=== PATIENT | male | born 1970 | race Caucasian/White ===

== ENCOUNTER 2021-01-14 17:09 | Emergency (ER) | payer SELFPAY ==
[2021-01-14 18:04] VITALS: BP 128/89; PULSE 94; RESP 18; TEMP 37.4; O2SAT 94; BMI 37.2
--- NOTE | 2021-01-14 22:11 | W.ED.EXTPRO ---
HPI - Extremity Problem General: Chief complaint: Extremity Injury, Upper Stated complaint: Fall, Pain in L arm Time Seen by Provider: 01/14/21 22:11 History of Present Illness: HPI Narrative: Patient is a 51-year-old male comes to the ED with left arm pain. Patient says last night he slipped in the shower and was able to catch himself by bracing his left arm against the wall. Patient says when he did that his left elbow hyperextended and he felt a pop around his elbow along with pain. Since injury last night he has been having pain when flexing and extending his left arm at the elbow. He also has some ecchymosis and swelling on the superior aspect of left elbow. Patient says he took some Tylenol last night and it did not help with pain. He rates his pain currently a 7 out of 10. Associated symptoms: Deny chest pain, fever(s) or rash Review of Systems Const: Denies: fever(s), chills or fatigue Eyes: Denies: change in vision or eye discomfort ENMT: Denies: throat pain, odynophagia, nasal discharge or nasal congestion Card: Denies: chest pain, palpitations, edema, swelling of feet/ankles, dyspnea on exertion or orthopnea Resp: Denies: dyspnea, productive cough or non-productive cough GI: Denies: abdominal pain, nausea, vomiting, diarrhea, constipation or hematochezia : Denies: flank pain, difficulty urinating, dysuria or hematuria Musc: Reports: extremity pain (left elbow) and extremity swelling (left elbow); Denies: neck pain or back pain Skin/Breast: Denies: rash or new lesions Neuro: Denies: headache(s), numbness in extremities or weakness in extremities Physical Exam Const: COMMON NORMALS: no acute distress, patient oriented x3 and alert GENERAL APPEARANCE: cooperative and comfortable HENMT: COMMON NORMALS: normocephalic HEAD & SCALP: normocephalic MOUTH: Normal oral and palatal mucosa present THROAT: posterior oropharynx normal and uvula midline Neck/C-Spine: COMMON NORMALS: supple GENERAL: Yes normal visual inspection Resp: COMMON NORMALS: normal respiratory effort, No retractions, No use of accessory muscles and clear to auscultation bilaterally AUSCULTATION: clear to auscultation bilaterally Cardio: COMMON NORMALS: regular rate, regular rhythm, S1 normal heart sound present, S2 normal heart sound present, No gallops present (Cardio), No clicks present (Cardio), No murmurs present (Cardio) and Peripheral pulses 2+ throughout RATE: regular rate RHYTHM: regular rhythm HEART SOUNDS: S1 normal heart sound present and S2 normal heart sound present PERIPHERAL PULSES: Peripheral pulses 2+ throughout GI: COMMON NORMALS: Normal to inspection, nondistended, normoactive bowel sounds present, Soft to palpation, non-tender and no masses PALPATION: Yes Soft to palpation : COMMON NORMALS: Yes no CVA tenderness BLADDER/KIDNEY EXAM: Yes no CVA tenderness Back/Pelvis: COMMON NORMALS: no CVA tenderness Extremity: NARRATIVE EXTREMITY EXAM: Left elbow-visible swelling and ecchymosis seen on the superior aspect of posterior elbow. Patient is also tender on the posterior and superior aspect of elbow. Limited flexion and extension of elbow due to pain. Neurovascular tact distally with 2+ radial pulse. GENERAL: Yes normal exam except as noted Neuro: COMMON NORMALS: patient oriented x3 and moves all extremities SENSORIUM/ORIENTATION: Yes alert Skin: GENERAL SKIN EXAM: dry skin Course Vital Signs: Vital signs: Vital Signs Temperature 97.8 F 01/14/21 23:51 Pulse Rate 88 01/14/21 23:51 Respiratory Rate 18 01/14/21 23:51 Blood Pressure 145/92 01/14/21 23:51 Pulse Oximetry 98 01/14/21 23:51 MDM - Extremity (Nontraumatic) MDM Narrative: Medical decision making narrative: Patient is a 51-year-old male comes to the ED with left elbow injury. Patient describes a hyper extension injury to left elbow. He felt a pop and has pain and swelling on the superior posterior aspect of left elbow. He has significant swelling and ecchymosis to the superior and posterior aspect of left elbow. He has pain when extending or flexing left elbow. Neurovascular intact. Left elbow x-ray showed periarticular soft tissue injury of the posterior elbow but no definitive fracture seen. Due to patient's clinical presentation I am going to refer patient to orthopedic doctor for further evaluation of left elbow injury. Patient was discharged home with a left shoulder sling and a written prescription of hydrocodone 5/325 mg #8 tablets. Return ED precautions given. I told patient that disease case manager will be contacting him in the next several days set up an appoint with orthopedic doctor. Patient understood agree with plan. Imaging Data^: Xray Ortho: Attestation: I personally reviewed and interpreted this imaging study as follows: Radiologist's impression: [address] [address] XRay Report Signed Patient: Jose Guardado Unit #: [id number] : [id number] Age/Sex: 51 / M ADM Date: 01/14/21 Loc: ER Room/Bed: Attending Dr: Ordering Provider/Ordering MD: Ramos Giron Date of Service: 01/14/21 Procedure(s): XR elbow LT min 3V* [id number] Accession Number(s): [id number] Report Number: [id number] PROCEDURE INFORMATION: Exam: XR Left Elbow Exam date and time: 01/14/2021 10:19 PM Age: 51 years old Clinical indication: Injury or trauma; Fall; Blunt trauma (contusions or hematomas); Injury date: 01/14/2021; Injury details: Fell in shower, caught himself and hyperextended left elbow, posterior bruise/swelling; Patient HX: Left elbow pain; Additional info: Hyperextend injury-ecchymosis and swelling TECHNIQUE: Imaging protocol: XR Left elbow. Views: 3 or more views. COMPARISON: No relevant prior studies available. FINDINGS: Bones/joints: Unremarkable joint alignment. Negative for joint effusion. Small calcifications adjacent to the proximal ulna are nonspecific. No definitive fractures. Soft tissues: Soft tissue swelling. XR/XR elbow LT min 3V* [id number] IMPRESSION: 1. Periarticular soft tissue injury of the posterior elbow. 2. No definite fractures. Dictated By: Sherman Jasmine Signed By: Sherman Jasmine Signed Date/Time: 01/14/212318 DD/ 17 Discharge Plan Discharge Patient Disposition: Home Clinical Impression: Soft tissue injury of left elbow Qualifiers: Encounter type: initial encounter Qualified Code(s): S59.902A - Unspecified injury of left elbow, initial encounter Condition: Stable Discharge Orders: Discharge ED (Routine); Ordered 01/14/21 Ordered By: Ramos Giron Referrals: Karl,Arvind, ASSOCIATE TEAM PHYSICIAN [Primary Care Provider] - Discharge Diet: Regular Discharge Activity: Limit activity as instructed Patient Instructions: Elbow Sprain (ED) Activity Restrictions/Additional Instructions: Follow-up with medical provider as directed. senior clinical study manager will contact you in the next several days to set up an appointment with the orthopedic doctor. Wear shoulder sling as needed to help provide support and allow your left elbow to rest for the next couple days. Make sure to take left arm out of sling daily and do some range of motion exercises with your shoulder to prevent frozen shoulder syndrome. Take medications as prescribed. Apply cold pack on elbow as well to help with symptoms. Return to the ER or your medical provider if condition worsens. Please read and understand discharge instructions. Thank you for choosing [facility] for your healthcare needs today. Please realize this is an emergency room and that we are providing you with a medical screening exam and this may not be complete and all inclusive of all the testing and or work up that you may need to determine your ailment or severity of your illness. It is very important that you follow up as instructed or that you return to the Emergency Department should you have concerns or if your condition changes or worsens in any way. Coding Level of Care Code ED Hospice Nurse for Stephany Fwkwasi Exam Comprehensive
[2021-01-14 22:13] VITALS: PULSE 74
--- NOTE | 2021-01-14 22:19 | XRR_ITS ---
PROCEDURE INFORMATION: Exam: XR Left Elbow Exam date and time: 01/14/2021 10:19 PM Age: 51 years old Clinical indication: Injury or trauma; Fall; Blunt trauma (contusions or hematomas); Injury date: 01/14/2021; Injury details: Fell in shower, caught himself and hyperextended left elbow, posterior bruise/swelling; Patient HX: Left elbow pain; Additional info: Hyperextend injury-ecchymosis and swelling TECHNIQUE: Imaging protocol: XR Left elbow. Views: 3 or more views. COMPARISON: No relevant prior studies available. FINDINGS: Bones/joints: Unremarkable joint alignment. Negative for joint effusion. Small calcifications adjacent to the proximal ulna are nonspecific. No definitive fractures. Soft tissues: Soft tissue swelling. XR/XR elbow LT min 3V* [id number] IMPRESSION: 1. Periarticular soft tissue injury of the posterior elbow. 2. No definite fractures.
[2021-01-14] MEDS: ketorolac 60 mg/2 mL INJ IM (22:26)
[2021-01-14 23:51] VITALS: BP 145/92; PULSE 88; RESP 18; TEMP 36.6; O2SAT 98
--- NOTE | 2021-01-15 09:01 | DCPLANNER ---
instrumentation manager had message to schedule a follow up appointment for patient with ortho for a soft elbow soft tissue injury. instrumentation manager called the ortho clinic, spoke with Annamaria, gave clinic patients information. instrumentation manager was told that patients information would be printed and reviewed. Clinic will call patient with appointment information.
--- NOTE | 2021-01-21 13:33 | DCPLANNER ---
Patient had a follow up appointment scheduled for 01.17.[address] Quinonez -patient did attend appointment.
== END 2021-01-14 23:52 | disposition home or self-care (01) ==
PROVIDERS: Emergency Provider Physician Assistant; PCP Nurse Practitioner Family
DX: S59.902A Unspecified injury of left elbow, initial encounter (principal); W18.49XA Other slipping, tripping and stumbling without falling, initial encounter; Y93.E1 Activity, personal bathing and showering; Y92.002 Bathroom of unspecified non-institutional (private) residence as the place of occurrence of the external cause
CPT/HCPCS: 73080; 96372; 99283; J1885

== ENCOUNTER 2022-09-18 17:40 | Outpatient (CLI) | payer SELFPAY ==
--- NOTE | 2022-09-18 18:30 | XRR_ITS ---
PROCEDURE INFORMATION: Exam: XR Chest Exam date and time: 09/18/2022 6:31 PM Age: 52 years old Clinical indication: Shortness of breath TECHNIQUE: Imaging protocol: Radiologic exam of the chest. Views: 2 views. COMPARISON: CR XR chest 1V [id number] 02/16/2019 8:22 PM FINDINGS: Lungs: Unremarkable. No consolidation. Pleural spaces: Unremarkable. No pleural effusion. No pneumothorax. Heart/Mediastinum: Unremarkable. No cardiomegaly. Bones/joints: Rotator cuff anchor noted within the right humeral head. Visualized osseous structures are intact. XR/XR chest 2V* [id number] IMPRESSION: No acute findings.
== END 2022-09-18 17:41 | disposition home or self-care (01) ==
PROVIDERS: PCP Nurse Practitioner Family; Visit Provider Nurse Practitioner Family
DX: R06.02 Shortness of breath (principal)
CPT/HCPCS: 71046

== ENCOUNTER 2022-09-19 19:07 | Emergency (ER) | payer SELFPAY ==
[2022-09-19 19:14] VITALS: BP 132/83; PULSE 109; RESP 20; TEMP 36.9; O2SAT 97; BMI 44.3
--- NOTE | 2022-09-19 19:49 | W.ED.EXTPRO ---
HPI - Extremity Problem General: Chief complaint: Extremity Injury, Lower Stated complaint: bilateral leg weakness Time Seen by Provider: 09/19/22 19:42 History of Present Illness: 52 old male patient comes in today for complaints of pelvic pain radiating to the right hip. Patient reports pain is started over the last week and has become unbearable at times with difficulty finding a resting position. Patient reports a loss of weight over the last 5 weeks of 17 pounds. Patient did state that he did change his diet and was intentionally trying to lose weight. Patient has a history of swelling in the lower extremities which he takes Lasix for. Patient has had a history of diabetes which he manages with diet. Patient sees Shania Figueroa for his primary care. Associated symptoms: Deny chest pain or rash Review of Systems General: Reports: 10 or more systems reviewed and unremarkable except in HPI and below Card: Denies: chest pain Resp: Denies: dyspnea GI: Denies: nausea or vomiting Musc: Reports: back pain Skin/Breast: Denies: rash PFSH ED PFSH: Social History Smoking and tobacco status: never smoked Physical Exam Const: COMMON NORMALS: alert HENMT: COMMON NORMALS: normocephalic HEAD & SCALP: normocephalic Neck/C-Spine: COMMON NORMALS: full ROM Lymph: LYMPHATIC: no lymphadenopathy noted Resp: COMMON NORMALS: normal respiratory effort and clear to auscultation bilaterally AUSCULTATION: clear to auscultation bilaterally Cardio: COMMON NORMALS: regular rate and regular rhythm RATE: regular rate RHYTHM: regular rhythm Back/Pelvis: THORACIC SPINE/UPPER BACK: No thoracic spinal tenderness LUMBAR SPINE/LOWER BACK: Yes lumbar spinal tenderness Lumbar spinal tenderness location: L5 and No paraspinal muscle tenderness Extremity: COMMON NORMALS: normal to inspection RIGHT LOWER EXTREMITY: Yes hip joint (Posterior sacroiliac tenderness) Neuro: SENSORIUM/ORIENTATION: Yes alert Skin: COMMON NORMALS: turgor normal GENERAL SKIN EXAM: turgor normal Course Vital Signs: Vital signs: Vital Signs Temperature 98.4 F 09/19/22 19:14 Pulse Rate 109 H 09/19/22 19:14 Respiratory Rate 20 H 09/19/22 19:14 Blood Pressure 132/83 09/19/22 19:14 Pulse Oximetry 97 09/19/22 19:14 Oxygen Delivery Me thod 09/19/22 19:14 MDM - Extremity (Nontraumatic) Medical Decision Making 52-year-old male patient comes in today for complaints of pelvic pain radiating to the right hip. Patient reports that he is unable to find comfort. Patient states the pain is being deep. On exam patient does have tenderness to the L5-S1 area of the spine and sacroiliac joint on the right side. Patient moves all extremities well. Abdomen soft nontender. Skin is warm and dry. Vital signs are normal except for some elevation in pulse and respirations. Patient reports he has had some problems with some mild shortness of breath after dealing with COVID 3 times. Differential diagnosis includes but not limited to intervertebral disc disease, facet arthritis, inflammatory process, infectious process. Laboratory values were unremarkable. X-ray of the lumbar spine noted some intervertebral disc loss between L5 and S1. This is where the patient's pain was not noted on palpation. The believe patient probably has some intervertebral disc disease with some sciatica. Reviewed exam with patient with recommendations for treatment and follow-up. Patient reported understanding agreed to plan. Lab Data 09/19/22 19:50 09/19/22 19:50 Radiology Impressions Lumbar Spine X-Ray 09/19/22 19:50 IMPRESSION: No acute bony findings. Laboratory Results WBC 8.9 10^3/uL (4.0-10.0) 09/19/22 19:50 RBC 5.50 10^6/uL (4.1-5.3) H 09/19/22 19:50 Hgb 16.3 g/dL (11.7-16.6) 09/19/22 19:50 Hct 51.5 % (42.0-52.0) 09/19/22 19:50 MCV 93.6 fl (80-94) 09/19/22 19:50 MCH 29.6 pg (28.0-34.0) 09/19/22 19:50 MCHC 31.7 g/dL (30.0-36.0) 09/19/22 19:50 RDW 12.6 % (12.1-15.1) 09/19/22 19:50 Plt Count 291 10^3/cmm (130-400) 09/19/22 19:50 MPV 10.0 fL (7.4-10.4) 09/19/22 19:50 Neut % (Auto) 66.2 % 09/19/22 19:50 Lymph % (Auto) 22.1 % 09/19/22 19:50 Richardson % (Auto) 6.2 % 09/19/22 19:50 Eos % (Auto) 4.6 % 09/19/22 19:50 Baso % (Auto) 0.7 % 09/19/22 19:50 Neut # (Auto) 5.87 10^3/uL (1.8-7.7) 09/19/22 19:50 Lymph # (Auto) 2.0 10^3/uL (0.8-4.8) 09/19/22 19:50 Richardson # (Auto) 0.6 10^3/uL (0.2-0.9) 09/19/22 19:50 Eos # (Auto) 0.4 10^3/uL (0.0-0.8) 09/19/22 19:50 Baso # (Auto) 0.1 10^3/uL (0.0-0.1) 09/19/22 19:50 Nucleated RBC % (auto) 0 % 09/19/22 19:50 Nucleated RBCs # 0.0 /100WBC 09/19/22 19:50 ESR 4 mm/hr (0-10) 09/19/22 19:50 Sodium 140 mmol/L (136-145) 09/19/22 19:50 Potassium 4.0 mmol/L (3.5-5.1) 09/19/22 19:50 Chloride 104 mmol/L (98-107) 09/19/22 19:50 Carbon Dioxide 26 mmol/L (22-29) 09/19/22 19:50 Anion Gap 14.0 (5-19) 09/19/22 19:50 BUN 12 mg/dL (6-20) 09/19/22 19:50 Creatinine 1.0 mg/dL (0.7-1.2) 09/19/22 19:50 Calculated Osmolality 291 mOsm/kg (285-295) 09/19/22 19:50 Calcium 9.4 mg/dL (8.5-10.5) 09/19/22 19:50 Total Bilirubin 0.4 mg/dL (0.15-1.2) 09/19/22 19:50 AST 32 U/L (0-40) 09/19/22 19:50 Alkaline Phosphatase 96 U/L (40-130) 09/19/22 19:50 Total Protein 7.0 g/dL (6.6-8.7) 09/19/22 19:50 Albumin 4.2 g/dL (3.5-5.2) 09/19/22 19:50 Globulin 2.8 g/dL (1.3-4.6) 09/19/22 19:50 Urine Color Yellow (Yellow) 09/19/22 19:37 Urine Appearance Hazy (CLEAR) A 09/19/22 19:37 Urine pH 5 (5-7) 09/19/22 19:37 Ur Specific Lincoln 1.025 (1.005-1.030) 09/19/22 19:37 Urine Protein Neg (Negative) 09/19/22 19:37 Urine Glucose (UA) Norm (Normal) 09/19/22 19:37 Urine Ketones 1+ (Negative) H 09/19/22 19:37 Urine Blood Trace (Negative) H 09/19/22 19:37 Urine Nitrate Negative (Negative) 09/19/22 19:37 Urine Bilirubin Neg (Negative) 09/19/22 19:37 Urine Urobilinogen Norm mg/dL (Negative) 09/19/22 19:37 Ur Leukocyte Esterase Negative (Negative) 09/19/22 19:37 Urine RBC 0-4 /hpf (0-2) H 09/19/22 19:37 Urine WBC 5-10 /hpf (0-5) H 09/19/22 19:37 Ur Squamous Epith Cells 10-15 /hpf (0-5) H 09/19/22 19:37 Amorphous Sediment Not Reportable 09/19/22 19:37 Urine Bacteria 1+ /hpf (NONE) H 09/19/22 19:37 Urine Mucus 3+ /hpf 09/19/22 19:37 Discharge Plan Discharge Patient Disposition: Home Clinical Impression: Low back pain Qualifiers: Chronicity: acute Back pain laterality: midline Sciatica presence: with sciatica Sciatica laterality: sciatica of right side Qualified Code(s): M54.41 - Lumbago with sciatica, right side Condition: Stable Prescriptions: New celecoxib 200 mg capsule 200 mg PO BID Qty: 20 0RF hydrocodone-acetaminophen 10-325 mg tablet 1 tab PO Q8H PRN (Reason: pain (scale score 7-10)) Qty: 10 0RF Discharge Orders: Discharge ED (Routine); Ordered 09/19/22 Ordered By: Aram Fan Referrals: Shania Figueroa FNP [Primary Care Provider] - Discharge Diet: Usual diet Discharge Activity: Increase activity as tolerated Patient Instructions: Back Pain (ED), Opioid Safety Activity Restrictions/Additional Instructions: Home and rest. Drink plenty of water and fluids with medication. Activity as tolerated. Follow-up with primary care in 1 week for recheck. Return to ER for worsening symptoms such as fever greater than 100.4, inability to hold fluids down, blood in vomit or stool, or new concerns. Coding Level of Care Code ED Wilderness Guide for Stephany Nevarez
--- NOTE | 2022-09-19 19:50 | XRR_ITS ---
PROCEDURE INFORMATION: Exam: XR Lumbosacral Spine Exam date and time: 09/19/2022 8:02 PM Age: 52 years old Clinical indication: Patient HX: Low back pain and mid pelvis pain w/o injury TECHNIQUE: Imaging protocol: Radiologic exam of the lumbosacral spine. Views: 2 or 3 views. COMPARISON: CT kidney stone [id number] 09/23/2016 9:21 AM FINDINGS: Bones/joints: Mild disc space narrowing L5-S1. No acute bony findings. Soft tissues: Unremarkable. XR/XR lumbar spine 2-3V* [id number] IMPRESSION: No acute bony findings.
[2022-09-19] MEDS: HYDROcodone-acetaminophen 10-325 mg Tablet 1 TAB PO (19:58)
[2022-09-19 20:01] LABS: Basophils # 0.1 10^3/uL (0.0-0.1); Basophils % 0.7 %; Eosinophils # 0.4 10^3/uL (0.0-0.8); Eosinophils % 4.6 %; Hematocrit 51.5 % (42.0-52.0); Hemoglobin 16.3 g/dL (11.7-16.6); Lymphocytes % 22.1 %; Mean Corpuscular HGB Conc 31.7 g/dL (30.0-36.0); Mean Corpuscular Hemoglobin 29.6 pg (28.0-34.0); Mean Corpuscular Volume 93.6 fl (80-94); Monocytes # 0.6 10^3/uL (0.2-0.9); Monocytes % 6.2 %; Neutrophils # 5.87 10^3/uL (1.8-7.7); Neutrophils % 66.2 %; Nucleated Red Blood Cells % 0 %; Platelet Count 291 10^3/cmm (130-400); Red Cell Distribution Width 12.6 % (12.1-15.1); White Blood Count 8.9 10^3/uL (4.0-10.0)
[2022-09-19 20:13] LABS: Albumin Level 4.2 g/dL (3.5-5.2); Alkaline Phosphatase 96 U/L (40-130); Aspartate Amino Transferase 32 U/L (0-40); Blood Urea Nitrogen 12 mg/dL (6-20); Calcium 9.4 mg/dL (8.5-10.5); Carbon Dioxide 26 mmol/L (22-29); Chloride 104 mmol/L (98-107); Globulin 2.8 g/dL (1.3-4.6); Osmolality Calculated 291 mOsm/kg (285-295); Sodium 140 mmol/L (136-145); Total Bilirubin 0.4 mg/dL (0.15-1.2)
[2022-09-19 20:30] LABS: Erythrocyte Sedimentation Rate 4 mm/hr (0-10)
[2022-09-19 20:51] LABS: Urine Appearance Hazy (CLEAR); Urine Color Yellow (Yellow)
[2022-09-19 20:52] LABS: Specific Gravity, Urine 1.025 (1.005-1.030); pH Urine 5 (5-7)
[2022-09-19 20:53] LABS: Add Urine Microscopic? YES; Bacteria Urine 1+ /hpf; Bilirubin Urine Neg (Negative); Blood Urine Trace (Negative); Glucose Urine UA Norm (Normal); Ketones Urine 1+ (Negative); Leukocyte Esterase Urine Negative (Negative); Mucus Urine 3+ /hpf; Nitrate Urine Negative (Negative); Protein Urine Neg (Negative); RBC Urine 0-4 /hpf (0-2); Urobilinogen Urine Norm (Negative)
[2022-09-19 20:54] LABS: Add Urine Culture? No
[2022-09-19 21:08] LABS: Alanine Aminotransferase 57 U/L (0-41); Glomerular Filtration Rate 77.9 mL/min (90-130); Glucose 117 mg/dL (65-115)
[2022-09-19] MEDS: ketorolac 30 mg/mL INJ 15 MG IVP (21:13)
== END 2022-09-19 21:12 | disposition home or self-care (01) ==
PROVIDERS: Emergency Provider Nurse Practitioner Family; PCP Nurse Practitioner Family
DX: M54.41 Lumbago with sciatica, right side (principal)
CPT/HCPCS: 72100; 80053; 81001; 85025; 85651; 86140; 96374; 99284; J1885

== ENCOUNTER → 2024-02-14 10:01 | Outpatient (BNVA) | payer SELFPAY | PROVIDERS: PCP Nurse Practitioner Family; Visit Provider Podiatrist Foot & Ankle Surgery | DX: S99.912A Unspecified injury of left ankle, initial encounter; S86.112A Strain of other muscle(s) and tendon(s) of posterior muscle group at lower leg level, left leg, initial encounter; X58.XXXA Exposure to other specified factors, initial encounter | CPT/HCPCS: 73610 ==

== ENCOUNTER 2024-08-28 18:10 | Emergency (ER) | payer SELFPAY ==
[2024-08-28 18:14] VITALS: BP 131/82; PULSE 96; RESP 18; TEMP 36.5; O2SAT 96; BMI 41.3
--- NOTE | 2024-08-28 18:26 | XRR_ITS ---
PROCEDURE INFORMATION: Exam: XR Left Foot Exam date and time: 08/28/2024 7:36 PM Age: 54 years old Clinical indication: Pain; Foot; Left; Additional info: Great toe pain/injury TECHNIQUE: Imaging protocol: Radiologic exam of the left foot. Views: 3 or more views. COMPARISON: CR XR ankle LT min 3V* [id number] 02/14/2024 10:07 AM FINDINGS: Bones/joints: No evidence of acute fracture or subluxation. Tarsometatarsal alignment is maintained. Mild osteoarthritis of the 1st MTP joint. Soft tissues: No gross soft tissue abnormality. XR/XR foot LT min 3V* [id number] IMPRESSION: 1. No evidence of acute fracture or subluxation.
[2024-08-28] MEDS: dexamethasone 10 mg/mL INJ IM (19:34)
[2024-08-28] MEDS: ketorolac 60 mg/2 mL INJ IM (19:35)
--- NOTE | 2024-08-28 20:23 | ED_ITS ---
HPI - Extremity Problem General: Chief complaint: Extremity Problem,Nontraumatic Stated complaint: L foot possably Broken Time Seen by Provider: 08/28/24 18:37 Source: patient Mode of arrival: ambulatory Limitations: no limitations History of Present Illness: Patient is a 54-year-old male who presents emergency department complaining of sudden onset left great toe pain over the past day. Denies history of gout. Denies any injuries. States it is too painful to walk on, he has not taken any medications. He notes redness and swelling to the medial aspect of the left first MTP. States he does not eat red meat, vitals are within normal limits. No fever, calf swelling or redness, or any other symptoms at this time. MD Complaint: joint swelling and joint pain Onset (ago): day(s) Pain Consistency: constant Location: left and toe Quality: burning (Throbbing) Radiation: none Relieving factors: immobilization Exacerbating factors: weight bearing Associated symptoms: Deny chest pain, fever(s) or rash Related Data Previous Rx's ?Medication ?Instructions ?Recorded miscellaneous medical supply 1 ea miscellaneous DAILY achilles 02/05/24 injury left #1 ea colchicine 0.6 mg tablet 0.6 mg PO DAILY #3 tabs 08/19 prednisone 20 mg tablet 60 mg (3 x 20 mg) PO ONCE 5 days 08/28/24 #15 tabs Allergies Allergy/AdvReac Type Severity Reaction Status Date / Time atenolol (From Tenormin) Allergy ALGY-Anaphy Verified 08/28/24 18:19 laxis caffeine (From Cafergot) Allergy ALGY-Anaphy Verified 08/28/24 18:19 laxis divalproex sodium (From Allergy ADR-Halluci Verified 08/28/24 18:19 Depakote) nating ergotamine (From Cafergot) Allergy ALGY-Anaphy Verified 08/28/24 18:19 laxis Review of Systems General: Reports: 10 or more systems reviewed and unremarkable except in HPI and below Const: Denies: fever(s) or chills Card: Denies: chest pain Resp: Denies: dyspnea or productive cough GI: Denies: abdominal pain, nausea, vomiting or diarrhea : Denies: flank pain Musc: Reports: joint pain, joint swelling and joint redness; Denies: neck pain, back pain, extremity pain, extremity swelling, joint warmth, limited range of motion or muscle weakness Skin/Breast: Denies: rash Neuro: Denies: headache(s), numbness in extremities or weakness in extremities PFSH ED PFSH: Social History Smoking and tobacco/nicotine status: never used tobacco/nicotine Physical Exam Const: COMMON NORMALS: no acute distress, patient oriented x3, no limitations, healthy appearing, alert and well nourished HENMT: COMMON NORMALS: normocephalic and atraumatic HEAD & SCALP: normocephalic and atraumatic Neck/C-Spine: COMMON NORMALS: full ROM, supple and no meningeal signs Resp: COMMON NORMALS: normal respiratory effort, No use of accessory muscles and clear to auscultation bilaterally AUSCULTATION: clear to auscultation bilaterally Cardio: COMMON NORMALS: regular rate and regular rhythm RATE: regular rate RHYTHM: regular rhythm Extremity: COMMON NORMALS: full ROM, capillary refill normal and no clubbing, cyanosis or edema NARRATIVE EXTREMITY EXAM: There is redness, swelling, and tenderness to left first MTP joint. DP/PT pulses to the left foot are palpable. No calf edema or redness. No distal neurovascular deficits. Neuro: COMMON NORMALS: patient oriented x3, moves all extremities, no focal motor deficits and no sensory deficits noted SENSORIUM/ORIENTATION: Yes alert MENINGEAL SIGNS: Yes no meningeal signs Course Vital Signs: Vital signs: Vital Signs Temperature 97.7 F 08/28/24 18:14 Pulse Rate 96 08/28/24 18:14 Respiratory Rate 18 08/28/24 18:14 Blood Pressure 131/82 08/28/24 18:14 Pulse Oximetry 96 08/28/24 18:14 MDM - Extremity (Nontraumatic) Medical Decision Making Patient presenting with clinical signs and symptoms of a gout flareup, x-ray was negative. Will treat with prednisone and colchicine and given handout including foods to avoid another lifestyle changes. Encouraged him to follow-up with primary care for reevaluation and return with any new or worsening. He agrees with this plan. XR interpretation done by ED provider, pending radiology final review ED provider radiology interpretation(s): X-ray of left foot does not demonstrate any acute findings. Discharge Plan Discharge Patient Disposition: Home Clinical Impression: Gout Condition: Stable Prescriptions: New prednisone 20 mg tablet 60 mg PO ONCE 5 Days Qty: 15 0RF colchicine 0.6 mg tablet 0.6 mg PO DAILY Qty: 3 0RF Rx Instructions: 1.2 mg PO x1, then 0.6 mg PO x1 1 hour later No Action miscellaneous medical supply Misc 1 ea miscellaneous DAILY Qty: 1 0RF Rx Instructions: walking boot Discharge Orders: Discharge ED (Routine); Ordered 08/28/24 Ordered By: Jax Hazel Referrals: Shania Figueroa FNP [Primary Care Provider] - Patient Instructions: Low Purine Diet (ED), Gout (ED) Activity Restrictions/Additional Instructions: Colchicine as directed, read directions on prescription bottle. Take prednisone as prescribed. Please see the attached patient instructions for further education. Follow-up with your primary care provider routinely, and return with any new or worsening. Print Language: Dutch Coding Level of Care Code ED Balance Wheel Arm Burnisher for Stephany Nevarez
[2024-08-28 20:38] VITALS: BP 128/97; PULSE 75; O2SAT 96
== END 2024-08-28 20:39 | disposition home or self-care (01) ==
PROVIDERS: Emergency Provider Physician Assistant; PCP Nurse Practitioner Family
DX: M10.9 Gout, unspecified (principal)
CPT/HCPCS: 73630; 96372; 99284; J1100; J1885